=== PATIENT | male | born 1970 | race Caucasian/White ===

== ENCOUNTER 2016-12-10 11:22 | Emergency (ER) | payer MEDICARE | END 2016-12-10 13:41 | disposition home or self-care (01) | LOC: D.ER 11:22 | DX: J06.9 Acute upper respiratory infection, unspecified (principal) ==

== ENCOUNTER 2017-02-02 15:51 | Emergency (ER) | payer MEDICARE | END 2017-02-02 18:18 | disposition left against medical advice (07) | LOC: D.ER 15:51 | DX: R05 Cough (principal) ==

== ENCOUNTER 2017-02-11 05:37 | Day surgery (SDC) | payer MEDICARE | END 2017-02-11 18:40 | disposition home or self-care (01) | LOC: D.OPS 05:37 | DX: M20.42 Other hammer toe(s) (acquired), left foot (principal); F17.200 Nicotine dependence, unspecified, uncomplicated; K21.9 Gastro-esophageal reflux disease without esophagitis; Z01.812 Encounter for preprocedural laboratory examination ==